=== PATIENT | male | born 1990 | race Caucasian/White ===

== ENCOUNTER → 2016-12-23 | Outpatient (CLI) | payer OTHER ==
--- NOTE | 2016-12-23 12:10 | XR ---
EXAMINATION TYPE: XR chest 2V DATE OF EXAM: 12/23/2016 12:03 PM COMPARISON: NONE HISTORY: Fall injury with right-sided chest pain. TECHNIQUE: Frontal and lateral views of the chest are obtained. FINDINGS: There is no focal air space opacity, pleural effusion, or pneumothorax seen. The cardiac silhouette size is within normal limits. The osseous structures are intact. IMPRESSION: No acute cardiopulmonary process.
== END ==
LOC: RADXRMAIN 11:44
PROVIDERS: ATTEND Emergency Medicine
DX: S20.20XA Contusion of thorax, unspecified, initial encounter (principal)
CPT/HCPCS: 71020

== ENCOUNTER → 2020-01-03 | Outpatient (CLI) | payer BC ==
--- NOTE | 2020-01-03 09:43 | XR ---
Lumbosacral spine HISTORY: Low back pain 5 views of lumbosacral spine and 6 images correlated to prior lumbar spine 03/25/2016 There is a stable appearance. Lumbar vertebral bodies show preserved height, alignment, and bone mine ralization. There is no evident spondylolysis. Mild loss of disc height L5-S1. No significant facet a rthropathy. There is mild spondylosis. IMPRESSION: Mild degenerative disc disease.
--- NOTE | 2020-01-03 09:45 | XR ---
Thoracic spine HISTORY: Back pain 3 views of the thoracic spine Thoracic vertebral bodies show preserved height, alignment, and bone mineralization. Disc spaces are maintained. IMPRESSION: Normal thoracic spine.
== END | disposition home or self-care (01) ==
LOC: RADXRMAIN 08:54
PROVIDERS: ATTEND Physician Assistant
DX: M51.37 Other intervertebral disc degeneration, lumbosacral region (principal)
CPT/HCPCS: 72070; 72110

== ENCOUNTER → 2020-12-19 | Outpatient (CLI) | payer OTHER ==
--- NOTE | 2020-12-19 19:15 | XR ---
EXAMINATION TYPE: XR shoulder complete LT DATE OF EXAM: 12/19/2020 COMPARISON: NONE HISTORY: Pain TECHNIQUE: Three views are submitted. FINDINGS: The osseous structures are intact. There is no acute fracture or dislocation. The AC joint is maint ained. IMPRESSION: 1. No acute process.
== END | disposition home or self-care (01) ==
LOC: RADXRMAIN 13:56
PROVIDERS: ATTEND Emergency Medicine
DX: M25.512 Pain in left shoulder (principal)

== ENCOUNTER 2023-08-15 16:41 | Emergency (ER) | payer BC ==
[2023-08-15 17:09] VITALS: TEMP 97.9
--- NOTE | 2023-08-15 17:46 | ED ---
Abdominal Pain HPI - General Source: patient, RN notes reviewed Mode of arrival: ambulatory Limitations: no limitations - History of Present Illness MD Complaint: abdominal pain <Bhumika Lee - Last Filed: 08/15/23 17:46> <Vianney Howard - Last Filed: 08/15/23 23:34> - General Chief Complaint: Abdominal Pain Stated Complaint: abd pain Time Seen by Provider: 08/15/23 17:44 - History of Present Illness Initial Comments: This is a 32-year-old male who presents to the emergency department for abdominal pain. States that he has had pain in the epigastric region with associated bloating, nausea, and vomiting over the last 3 days. He went to urgent care initially, but was advised to come to the emergency department for evaluation of gallbladder problems. (Bhumika Lee) - Related Data Home Medications Medication Instructions Recorded Confirmed Magnesium Hydroxide [Milk of 2,400 mg PO DAILY 05/12/16 05/12/16 Magnesia] polyethylene glycoL 3350 [Miralax] 17 gm PO DAILY 05/12/16 05/12/16 Previous Rx's Medication Instructions Recorded Pantoprazole [Protonix] 40 mg PO DAILY #14 tab 08/15/23 Allergies Allergy/AdvReac Type Severity Reaction Status Date / Time bupropion [From Wellbutrin] Allergy Unknown Verified 08/15/23 17:01 Review of Systems ROS Other: All systems not noted in ROS Statement are negative. <Bhumika Lee - Last Filed: 08/15/23 17:46> ROS Other: All systems not noted in ROS Statement are negative. <Vianney Howard - Last Filed: 08/15/23 23:34> ROS Statement: Those systems with pertinent positive or pertinent negative responses have been documented in the HPI. Past Medical History Past Medical History: No Reported History History of Any Multi-Drug Resistant Organisms: None Reported Additional Past Surgical History / Comment(s): cyst removal Past Psychological History: No Psychological Hx Reported Smoking Status: Current every day smoker Past Alcohol Use History: Occasional Past Drug Use History: None Reported <Bhumika Lee - Last Filed: 08/15/23 17:46> General Exam Limitations: no limitations <Bhumika Lee - Last Filed: 08/15/23 17:46> Limitations: no limitations General appearance: alert, in no apparent distress Head exam: Present: atraumatic, normocephalic, normal inspection Eye exam: Present: normal appearance, PERRL, EOMI. Absent: scleral icterus, conjunctival injection, periorbital swelling ENT exam: Present: normal exam, mucous membranes moist Neck exam: Present: normal inspection. Absent: tenderness, meningismus, lymphadenopathy Respiratory exam: Present: normal lung sounds bilaterally. Absent: respiratory distress, wheezes, rales, rhonchi, stridor Cardiovascular Exam: Present: regular rate, normal rhythm, normal heart sounds. Absent: systolic murmur, diastolic murmur, rubs, gallop, clicks GI/Abdominal exam: Present: soft, normal bowel sounds. Absent: distended, tenderness, guarding, rebound, rigid Extremities exam: Present: normal inspection, full ROM, normal capillary refill. Absent: tenderness, pedal edema, joint swelling, calf tenderness Back exam: Present: normal inspection Neurological exam: Present: alert, oriented X3 Psychiatric exam: Present: normal affect, normal mood Skin exam: Present: warm, dry, intact, normal color. Absent: rash <Vianney Howard - Last Filed: 08/15/23 23:34> - General Exam Comments Initial Comments: Visual Physical Exam Vital signs reviewed General: Well-appearing, nontoxic, no acute distress. Head: Normocephalic, atraumatic Eyes: PERRLA, EOMI ENT: Airway patent Chest: Nonlabored breathing Skin: No visual rash, normal skin tone Neuro: Alert and oriented 3 Musculoskeletal: No gross abnormalities (Bhumika Lee) Course Vital Signs 08/15/23 08/15/23 16:59 20:27 Temperature 97.9 F Pulse Rate 73 61 Respiratory 16 18 Rate Blood Pressure 135/89 118/79 O2 Sat by Pulse 99 99 Oximetry Medical Decision Making <Bhumika Lee - Last Filed: 08/15/23 17:46> - Lab Data Result diagrams: 08/15/23 19:00 08/15/23 19:00 <Vianney Howard - Last Filed: 08/15/23 23:34> - Medical Decision Making I performed the QuickNote portion of this chart. Signed Bhumika Lee PA-C. (Bhumika Lee) Was pt. sent in by a medical professional or institution (, [facility], INTERIOR ASSEMBLIES INSTALLER, urgent care, hospital, or half-way...) When possible be specific @ -No Did you speak to anyone other than the patient for history (EMS, parent, family, police, friend...)? What history was obtained from this source @ -No Did you review nursing and triage notes (agree or disagree)? Why? @ -I reviewed and agree with nursing and triage notes Were old charts reviewed (outside hosp., previous admission, EMS record, old EKG, old radiological studies, urgent care reports/EKG's, half-way records)? Report findings @ -No old charts were reviewed Differential Diagnosis (chest pain, altered mental status, abdominal pain women, abdominal pain men, vaginal bleeding, weakness, fever, dyspnea, syncope, headache, dizziness, GI bleed, back pain, seizure, CVA, palpatations, mental health, musculoskeletal)? @ -Differential Abdominal Pain Men: Appendicitis, cholecystitis, diverticulosis, ischemic bowel, pancreatitis, he patitis, UTI, gastroenteritis, AAA, incarcerated hernia, bowel obstruction, constipation, inflammatory bowel, hepatitis, peptic ulcer disease, splenic infarction, perforated viscus, testicular torsion, this is not meant to be an all-inclusive list EKG interpreted by me (3pts min.). @ -none X-rays interpreted by me (1pt min.). @ -None done CT interpreted by me (1pt min.). @ -None done U/S interpreted by me (1pt. min.). @ - gallbladder ultrasound shows no acute process What testing was considered but not performed or refused? (CT, X-rays, U/S, labs)? Why? @ -None What meds were considered but not given or refused? Why? @ -None Did you discuss the management of the patient with other professionals (professionals i.e. [facility], INTERIOR ASSEMBLIES INSTALLER, lab, RT, psych nurse, social media designer, insurance claims examiner, teacher, professional security officer, top case assembler)? Give summary @ -No Was smoking cessation discussed for >3mins.? @ -No Was critical care preformed (if so, how long)? @ -No Were there social determinants of health that impacted care today? How? (Homelessness, low income, unemployed, alcoholism, drug addiction, transportation, low edu. Level, literacy, decrease access to med. care, fci, rehab)? @ -No Was there de-escalation of care discussed even if they declined (Discuss DNR or withdrawal of care, Hospice)? DNR status @ -No What co-morbidities impacted this encounter? (DM, HTN, Smoking, COPD, CAD, Cancer, CVA, ARF, Chemo, Hep., AIDS, mental health diagnosis, sleep apnea, morbid obesity)? @ -None Was patient admitted / discharged? Hospital course, mention meds given and route, prescriptions, significant lab abnormalities, going to OR and other pertinent info. @ -Discharged. Patient presented to the emergency department for evaluation of upper abdominal pain. Gallbladder ultrasound was obtained which shows no acute process. Laboratory studies obtainedCBC shows WBC 10.8, hemoglobin 18.8; CMP shows sodium 140, potassium 5.5 with slight hemolysis, amylase 45, lipase 51. Patient was given a dose of Zofran and 1 L normal saline in the emergency department. Prescription sent to the patient's pharmacy for pantoprazole. Patient advised on the findings of ultrasound and laboratory studies. Patient understands and agreeable with discharge plan. Patient stable at discharge. Case discussed with Dr. Ortiz. Undiagnosed new problem with uncertain prognosis? @ -No Drug Therapy requiring intensive monitoring for toxicity (Heparin, Nitro, Insulin, Cardizem)? @ -No Were any procedures done? @ -No Diagnosis/symptom? @ -gastritis Acute, or Chronic, or Acute on Chronic? @ -acute Uncomplicated (without systemic symptoms) or Complicated (systemic symptoms)? @ -uncomplicated Side effects of treatment? @ -No Exacerbation, Progression, or Severe Exacerbation? @ -No Poses a threat to life or bodily function? How? (Chest pain, [place], [place], pneumonia, PE, COPD, DKA, ARF, appy, cholecystitis, CVA, Diverticulitis, Homicidal, Suicidal, threat to staff... and all critical care pts) @ -No (Vianney Howard) - Lab Data Lab Results 08/15/23 08/15/23 08/15/23 Range/Units 19:00 19:00 19:00 WBC 10.8 H (3.8-10.6) k/uL RBC 6.54 H (4.30-5.90) m/uL Hgb 18.8 H (13.0-17.5) gm/dL Hct 54.9 H (39.0-53.0) % MCV 83.9 (80.0-100.0) fL MCH 28.7 (25.0-35.0) pg MCHC 34.2 (31.0-37.0) g/dL RDW 12.3 (11.5-15.5) % Plt Count 331 (150-450) k/uL MPV 7.5 Neutrophils % 47 % Lymphocytes % 29 % Monocytes % 4 % Eosinophils % 18 % Basophils % 1 % Neutrophils # 5.1 (1.3-7.7) k/uL Lymphocytes # 3.1 (1.0-4.8) k/uL Monocytes # 0.4 (0-1.0) k/uL Eosinophils # 2.0 H (0-0.7) k/uL Basophils # 0.1 (0-0.2) k/uL Sodium 140 (137-145) mmol/L Potassium 5.5 H (3.5-5.1) mmol/L Chloride 102 (98-107) mmol/L Carbon Dioxide 26 (22-30) mmol/L Anion Gap 12 mmol/L BUN 13 (9-20) mg/dL Creatinine 0.89 (0.66-1.25) mg/dL Est GFR (CKD-EPI)AfAm >90 (>60 ml/min/1.73 sqM) Est GFR (CKD-EPI)NonAf >90 (>60 ml/min/1.73 sqM) Glucose 98 (74-99) mg/dL Plasma Lactic Acid Terence 1.3 (0.7-2.0) mmol/L Calcium 9.5 (8.4-10.2) mg/dL Total Bilirubin 1.0 (0.2-1.3) mg/dL AST 50 (17-59) U/L ALT 49 (4-49) U/L Alkaline Phosphatase 43 (38-126) U/L Total Protein 8.1 (6.3-8.2) g/dL Albumin 4.8 (3.5-5.0) g/dL Amylase 45 (30-110) U/L Lipase 51 (23-300) U/L Disposition <Bhumika Lee - Last Filed: 08/15/23 17:46> Is patient prescribed a controlled substance at d/c from ED?: No <Vianney Howard - Last Filed: 08/15/23 23:34> Clinical Impression: Gastritis Disposition: HOME SELF-CARE Condition: Stable Instructions (If sedation given, give patient instructions): Abdominal Pain (ED) Additional Instructions: Please follow up with your primary care provider. Return to the emergency department for any worsening symptoms. Prescriptions: Pantoprazole [Protonix] 40 mg PO DAILY #14 tab Referrals: Cortez Hernandez MD [Primary Care Provider] - 1-2 days
--- NOTE | 2023-08-15 17:47 | US ---
EXAMINATION TYPE: US gallbladder DATE OF EXAM: 08/15/2023 COMPARISON: NONE CLINICAL INDICATION: Male, 32 years old with history of RUQ pain; Epigastric pain, nausea, bloating f or 3 days TECHNIQUE: Multiple sonographic images of the right upper quadrant are obtained. 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 No acute abdomen ultrasound abnormality
[2023-08-15 19:19] LABS: Basophils # (A) 0.1 k/uL (0-0.2); Basophils % (A) 1 %; Eosinophils % (A) 18 %; HCT 54.9 % (39.0-53.0); HGB 18.8 gm/dL (13.0-17.5); Lymphocytes # (A) 3.1 k/uL (1.0-4.8); Lymphocytes % (A) 29 %; MCH 28.7 pg (25.0-35.0); MCHC 34.2 g/dL (31.0-37.0); MCV 83.9 fL (80.0-100.0); Mean Platelet Volume 7.5; Monocytes # (A) 0.4 k/uL (0-1.0); Monocytes % (A) 4 %; Neutrophils # (A) 5.1 k/uL (1.3-7.7); Neutrophils % (A) 47 %; Platelet Count 331 k/uL (150-450); RBC 6.54 m/uL (4.30-5.90); RDW 12.3 % (11.5-15.5); WBC 10.8 k/uL (3.8-10.6)
[2023-08-15 19:27] LABS: ALT 49 U/L (4-49); AST 50 U/L (17-59); African American GFR (CKD) >90 (>60 ml/min/1.73 sqM); Albumin 4.8 g/dL (3.5-5.0); Alkaline Phosphatase 43 U/L (38-126); Amylase 45 U/L (30-110); Anion Gap 12 mmol/L; Blood Urea Nitrogen 13 mg/dL (9-20); Calcium 9.5 mg/dL (8.4-10.2); Carbon Dioxide 26 mmol/L (22-30); Chloride 102 mmol/L (98-107); Glucose 98 mg/dL (74-99); Lipase 51 U/L (23-300); Non-African American GFR(CKD) >90 (>60 ml/min/1.73 sqM); Sodium 140 mmol/L (137-145); Total Protein 8.1 g/dL (6.3-8.2)
[2023-08-15 19:29] LABS: Potassium 5.5 mmol/L (3.5-5.1)
[2023-08-15] MEDS ORDERED: SODIUM CHLORIDE 0.9% 1,000 ML IV ONE (19:44)
[2023-08-15] MEDS ORDERED: ONDANSETRON 4 MG/2 ML VIAL IVP STA (19:44)
[2023-08-15 20:34] VITALS: BP 118/79; PULSE 61; RESP 18
== END 2023-08-15 21:15 | disposition home or self-care (01) ==
LOC: EC 16:41
DX: K29.70 Gastritis, unspecified, without bleeding (principal); F17.200 Nicotine dependence, unspecified, uncomplicated; Z88.8 Allergy status to other drugs, medicaments and biological substances
CPT/HCPCS: 36415; 80053; 82150; 83605; 83690; 85025; 76705; 99284; 96374; 96361; J2405